=== PATIENT | female | born 1935 | race Caucasian/White ===

== ENCOUNTER 2020-11-19 15:24 | Outpatient (REF) | payer MEDICARE, SELFPAY ==
--- NOTE | ~2020-11-19 | US_ITS ---
EXAMINATION: US VENOUS ULTRASOUND WITH DOPPLER LOWER EXTREMITY, RIGHT CLINICAL INFORMATION: Pain COMPARISON: None TECHNIQUE: Ultrasound of the deep veins is performed from the hip to the calf with compression sonography and color and pulse Doppler assessment. Spectral analysis with color-flow imaging is performed. FINDINGS: There is normal venous compression and respiratory variation and augmented flow. The visualized common femoral vein, superficial femoral vein, profunda femoral vein, popliteal vein, and the trifurcation region shows no evidence of deep venous thrombosis. There is no significant popliteal fossa cyst. US/US venous duplex LE RT IMPRESSION: No DVT demonstrated in the right lower extremity.
== END 2020-11-19 15:25 | disposition home or self-care (01) ==
LOC: HO.US 15:24
PROVIDERS: PCP Internal Medicine; Visit Provider Nurse Practitioner Family
DX: M79.604 Pain in right leg (principal); M79.89 Other specified soft tissue disorders
CPT/HCPCS: 93971

== ENCOUNTER 2021-04-23 08:18 | Outpatient (REF) | payer MEDICARE, SELFPAY ==
[2021-04-23 11:28] LABS: Hematocrit 36.9 % (37-47); Hemoglobin 12.2 g/dl (12.0-16.0); Mean Corpuscular HGB Conc 33.1 g/dl (31.0-35.0); Mean Corpuscular Volume 87.6 fL (80-98); Mean Platelet Volume 9.6 fL (9.4-12.3); Platelet Count 223 X10*3/uL (160-400); Red Blood Count 4.21 X10*6/uL (4.20-5.50); Red Cell Distribution Width 14.3 % (11.0-16.0); White Blood Count 7.2 X10*3/uL (4.8-10.8)
[2021-04-23 12:35] LABS: Alanine Aminotransferase 16 U/L (0-31); Albumin Level 4.1 g/dL (3.5-5.0); Alkaline Phosphatase 73 U/L (39-117); Anion Gap 13 (12-20); Aspartate Amino Transferase 28 U/L (5-31); Bilirubin Total 0.6 mg/dL (0.0-1.0); Blood Urea Nitrogen 30 mg/dL (9-16); Calcium 9.5 mg/dL (8.4-10.2); Carbon Dioxide 27 mmol/L (22-29); Chloride 102 mmol/L (96-108); Cholesterol 178 mg/dL; Estimated Glomerular Filt Rate 50; Glucose Fasting 91 mg/dL (60-99); HDL Cholesterol 66 mg/dL; LDL Cholesterol Calculated 87 mg/dl; Potassium 3.9 mmol/L (3.3-5.1); Sodium 138 mmol/L (135-145); Total Protein 7.2 g/dL (6.5-8.0); Triglycerides 129 mg/dL
[2021-04-23 13:14] LABS: TSH reflex Free T4 2.71 uIU/mL (0.32-4.0)
== END 2021-04-23 08:19 | disposition home or self-care (01) ==
LOC: HO.HMGCLDS 08:18
PROVIDERS: PCP Internal Medicine; Visit Provider Internal Medicine
DX: E03.9 Hypothyroidism, unspecified (principal); E78.5 Hyperlipidemia, unspecified; I12.9 Hypertensive chronic kidney disease with stage 1 through stage 4 chronic kidney disease, or unspecified chronic kidney disease; N18.30 Chronic kidney disease, stage 3 unspecified
CPT/HCPCS: 36415; 80048; 80053; 80061; 84443; 85027

== ENCOUNTER 2021-12-15 08:25 | Outpatient (REF) | payer MEDICARE, SELFPAY ==
[2021-12-15 11:59] LABS: Alanine Aminotransferase 12 U/L (0-31); Albumin Level 4.1 g/dL (3.5-5.0); Alkaline Phosphatase 92 U/L (39-117); Anion Gap 12 (12-20); Aspartate Amino Transferase 24 U/L (5-31); Bilirubin Total 0.2 mg/dL (0.0-1.0); Blood Urea Nitrogen 30 mg/dL (9-16); Calcium 9.7 mg/dL (8.4-10.2); Carbon Dioxide 26 mmol/L (22-29); Chloride 105 mmol/L (96-108); Cholesterol 172 mg/dL; Estimated Glomerular Filt Rate 54; Glucose Fasting 95 mg/dL (60-99); HDL Cholesterol 67 mg/dL; LDL Cholesterol Calculated 83 mg/dl; Potassium 4.4 mmol/L (3.3-5.1); Sodium 139 mmol/L (135-145); Total Protein 7.4 g/dL (6.5-8.0); Triglycerides 113 mg/dL
[2021-12-15 12:02] LABS: TSH reflex Free T4 3.97 uIU/mL (0.32-4.0)
== END 2021-12-15 08:26 | disposition home or self-care (01) ==
LOC: HO.HMGCLDS 08:25
PROVIDERS: Visit Provider Internal Medicine
DX: E78.5 Hyperlipidemia, unspecified (principal); I12.9 Hypertensive chronic kidney disease with stage 1 through stage 4 chronic kidney disease, or unspecified chronic kidney disease; N18.30 Chronic kidney disease, stage 3 unspecified
CPT/HCPCS: 36415; 80053; 80061; 84443

== ENCOUNTER 2022-06-08 09:15 | Outpatient (REF) | payer MEDICARE, SELFPAY ==
[2022-06-08 11:31] LABS: MANUAL DIFF FLAG NO
[2022-06-08 11:56] LABS: Basophils Absolute Auto 0.1 X10*3/uL (0.0-0.2); Basophils Percent Auto 0.9 % (0-2); Eosinophils Absolute Auto 0.1 X10*3/uL (0.0-0.4); Eosinophils Percent Auto 1.9 % (0-4); Hematocrit 38.7 % (37.0-47.0); Hemoglobin 12.8 g/dl (12.0-16.0); Imm Gran Abs Auto 0.01 X10*3/uL (0.00-0.03); Imm Gran Pct Auto 0.2 % (0.0-0.4); Lymphocytes Absolute Auto 1.8 X10*3/uL (1.2-4.9); Lymphocytes Percent Auto 31.2 % (20-40); Mean Corpuscular HGB Conc 33.1 g/dl (31.0-35.0); Mean Corpuscular Hemoglobin 28.9 pg (27.0-33.0); Mean Corpuscular Volume 87.4 fL (80.0-98.0); Mean Platelet Volume 9.7 fL (9.4-12.3); Monocytes Absolute Auto 0.5 X10*3/uL (0.1-1.2); Monocytes Percent Auto 8.5 % (2-11); Neutrophils Absolute Auto 3.4 x10*3/uL (2.0-8.3); Neutrophils Percent Auto 57.3 % (45-73); Platelet Count 231 X10*3/uL (160-400); Red Blood Count 4.43 X10*6/uL (4.20-5.50); White Blood Count 5.9 X10*3/uL (4.8-10.8)
[2022-06-08 12:08] LABS: Alanine Aminotransferase 14 U/L (0-31); Albumin Level 4.3 g/dL (3.5-5.0); Alkaline Phosphatase 91 U/L (39-117); Anion Gap 13 (12-20); Aspartate Amino Transferase 25 U/L (5-31); Bilirubin Total 0.5 mg/dL (0.0-1.0); Blood Urea Nitrogen 29 mg/dL (9-16); Calcium 9.6 mg/dL (8.4-10.2); Carbon Dioxide 28 mmol/L (22-29); Chloride 101 mmol/L (96-108); Cholesterol 208 mg/dL; Estimated Glomerular Filt Rate 46; Glucose Fasting 93 mg/dL (60-99); HDL Cholesterol 69 mg/dL; LDL Cholesterol Calculated 104 mg/dl; Potassium 3.9 mmol/L (3.3-5.1); Sodium 138 mmol/L (135-145); Total Protein 7.7 g/dL (6.5-8.0); Triglycerides 177 mg/dL
[2022-06-08 12:29] LABS: Erythrocyte Sedimentation Rate 9 MM/HR (0-20)
[2022-06-08 12:30] LABS: TSH reflex Free T4 3.43 uIU/mL (0.32-4.0)
== END 2022-06-08 09:16 | disposition home or self-care (01) ==
LOC: HO.HMGCLDS 09:15
PROVIDERS: PCP Internal Medicine; Visit Provider Internal Medicine
DX: Z00.00 Encounter for general adult medical examination without abnormal findings (principal); E78.5 Hyperlipidemia, unspecified; I12.9 Hypertensive chronic kidney disease with stage 1 through stage 4 chronic kidney disease, or unspecified chronic kidney disease; N18.30 Chronic kidney disease, stage 3 unspecified
CPT/HCPCS: 36415; 80053; 80061; 84443; 85025; 85652

== ENCOUNTER 2022-11-12 11:02 | Outpatient (REF) | payer MEDICARE, SELFPAY ==
--- NOTE | ~2022-11-12 | XR_ITS ---
EXAMINATION: XR LUMBOSACRAL SPINE CLINICAL INFORMATION: M54.5 - Low back pain COMPARISON: None available. TECHNIQUE: Three views of the lumbosacral spine. FINDINGS: There is a gentle dextrocurvature lumbar spine. The lateral view suggests normal lumbar segmentation with 5 nonrib-bearing lumbar vertebrae of normal height and lumbar lordosis. No vertebral compression or destructive process. There are multilevel degenerative disc changes at all levels with variable disc narrowing and endplate sclerosis and vertebral spurring. There are bulky partially bridging osteophytes on the left upper to mid lumbar region and anterior lumbosacral junction. There is also facet degeneration lumbosacral junction. A grade 1 spondylolisthesis is present at L5-S1. The SI joints and visualized sacrum are otherwise unremarkable. XR/XR lumbar spine 2-3V IMPRESSION: -Diffuse multilevel degenerative disc changes. -Grade 1 spondylolisthesis lumbosacral junction.
--- NOTE | ~2022-11-12 | XR_ITS ---
EXAMINATION: XR HIPS, BILATERAL CLINICAL INFORMATION: Low back pain COMPARISON: Lumbar spine radiographs 11/12/2022. TECHNIQUE: Each hip is imaged in AP and frog-lateral projections. There are a total of 4 views, 2 on each side. FINDINGS: No fracture, dislocation, destructive process. There is no hip joint narrowing or erosive change or chondrocalcinosis. The the SI joints show mild spurring inferior aspect. No ankylosis. There is mild osteitis pubis. XR/XR hips AMRIT min 3V IMPRESSION: -No hip joint narrowing or erosive change. -Mild osteitis pubis.
== END 2022-11-12 11:03 | disposition home or self-care (01) ==
LOC: HO.HMGCX 11:02
PROVIDERS: PCP Internal Medicine; Visit Provider Internal Medicine
DX: M54.50 Low back pain, unspecified (principal); M70.62 Trochanteric bursitis, left hip; I10 Essential (primary) hypertension
CPT/HCPCS: 72100; 73522

== ENCOUNTER 2022-12-11 09:28 | Outpatient (REF) | payer MEDICARE, SELFPAY ==
[2022-12-11 12:20] LABS: Alanine Aminotransferase 13 U/L (0-31); Albumin Level 4.1 g/dL (3.5-5.0); Alkaline Phosphatase 101 U/L (39-117); Anion Gap 11 (12-20); Aspartate Amino Transferase 25 U/L (5-31); Bilirubin Total 0.5 mg/dL (0.0-1.0); Blood Urea Nitrogen 31 mg/dL (9-16); Calcium 9.7 mg/dL (8.4-10.2); Carbon Dioxide 29 mmol/L (22-29); Chloride 101 mmol/L (96-108); Cholesterol 296 mg/dL; Estimated Glomerular Filt Rate 53; Glucose Fasting 91 mg/dL (60-99); HDL Cholesterol 66 mg/dL; LDL Cholesterol Calculated 184 mg/dl; Potassium 4.2 mmol/L (3.3-5.1); Sodium 137 mmol/L (135-145); TSH reflex Free T4 2.31 uIU/mL (0.32-4.0); Total Protein 7.3 g/dL (6.5-8.0); Triglycerides 233 mg/dL; Vitamin D 25-OH Total 31.5 ng/mL (>30)
== END 2022-12-11 09:29 | disposition home or self-care (01) ==
LOC: HO.HMGCLDS 09:28
PROVIDERS: PCP Internal Medicine; Visit Provider Internal Medicine
DX: E03.9 Hypothyroidism, unspecified (principal); I12.9 Hypertensive chronic kidney disease with stage 1 through stage 4 chronic kidney disease, or unspecified chronic kidney disease; N18.30 Chronic kidney disease, stage 3 unspecified
CPT/HCPCS: 36415; 80053; 80061; 82306; 84443

== ENCOUNTER 2023-05-25 07:28 | Outpatient (REF) | payer MEDICARE, SELFPAY ==
[2023-05-25 11:41] LABS: MANUAL DIFF FLAG NO
[2023-05-25 11:52] LABS: Basophils Percent Auto 0.6 % (0-2); Eosinophils Absolute Auto 0.1 X10*3/uL (0.0-0.4); Hematocrit 35.7 % (37.0-47.0); Hemoglobin 11.7 g/dl (12.0-16.0); Imm Gran Abs Auto 0.05 X10*3/uL (0.00-0.03); Imm Gran Pct Auto 0.7 % (0.0-0.4); Lymphocytes Absolute Auto 1.8 X10*3/uL (1.2-4.9); Lymphocytes Percent Auto 25.1 % (20-40); Mean Corpuscular HGB Conc 32.8 g/dl (31.0-35.0); Mean Corpuscular Hemoglobin 28.4 pg (27.0-33.0); Mean Corpuscular Volume 86.7 fL (80.0-98.0); Mean Platelet Volume 9.1 fL (9.4-12.3); Monocytes Absolute Auto 0.6 X10*3/uL (0.1-1.2); Monocytes Percent Auto 8.6 % (2-11); Neutrophils Absolute Auto 4.6 x10*3/uL (2.0-8.3); Platelet Count 270 X10*3/uL (160-400); Red Blood Count 4.12 X10*6/uL (4.20-5.50); Red Cell Distribution Width 14.9 % (11.0-16.0); White Blood Count 7.2 X10*3/uL (4.8-10.8)
[2023-05-25 12:37] LABS: Alanine Aminotransferase 23 U/L (0-31); Albumin Level 3.8 g/dL (3.5-5.0); Alkaline Phosphatase 73 U/L (39-117); Anion Gap 15 (12-20); Aspartate Amino Transferase 30 U/L (5-31); Bilirubin Total 0.8 mg/dL (0.0-1.0); Blood Urea Nitrogen 27 mg/dL (9-16); Calcium 9.3 mg/dL (8.4-10.2); Carbon Dioxide 24 mmol/L (22-29); Chloride 102 mmol/L (96-108); Cholesterol 132 mg/dL (<200); Estimated Glomerular Filt Rate > 60; Glucose Fasting 92 mg/dL (60-99); HDL Cholesterol 70 mg/dL (>40); LDL Cholesterol Calculated 48 mg/dL (<100); Potassium 3.9 mmol/L (3.3-5.1); Sodium 137 mmol/L (135-145); Total Protein 7.1 g/dL (6.5-8.0); Triglycerides 71 mg/dL (<150)
[2023-05-25 12:38] LABS: TSH reflex Free T4 6.32 uIU/mL (0.32-4.0)
[2023-05-25 13:11] LABS: Free T4 (Free Thyroxine) 1.06 ng/dL (0.71-1.85)
== END 2023-05-25 07:29 | disposition home or self-care (01) ==
LOC: HO.HMGCLDS 07:28
PROVIDERS: PCP Internal Medicine; Visit Provider Internal Medicine
DX: I12.9 Hypertensive chronic kidney disease with stage 1 through stage 4 chronic kidney disease, or unspecified chronic kidney disease (principal); N18.30 Chronic kidney disease, stage 3 unspecified; E03.9 Hypothyroidism, unspecified
CPT/HCPCS: 36415; 80053; 80061; 84439; 84443; 85025

== ENCOUNTER 2023-06-02 08:43 | Outpatient (AMB) | payer MEDICARE, SELFPAY ==
--- NOTE | 2023-06-02 09:19 | MHC.PC.OV ---
Vital Signs 06/02/23 09:22 Height 5 ft Weight 159 lb BMI 31.0 BP 128/74 Blood Pressure Location Lt brachial Position Sitting Pulse 69 Pulse Source Pulse Oximeter Pulse Oximetry (%) 99 Oxygen Delivery Method Room Air [facility]: Pt is here today for a Hospital follow up visit. Allergies penicillin V Allergy (Unknown, Verified 06/02/23 09:28) rash and swelling hydrochlorothiazide Adverse Reaction (Intermediate, Verified 06/02/23 09:40) hyponatremia rosuvastatin [From Crestor] Adverse Reaction (Intermediate, Verified 06/02/23 09:28) Muscle Pain lisinopril Adverse Reaction (Unknown, Verified 06/02/23 09:28) cough Medication List - Last Reconciled 06/02/23 by Ana Laura Lora MD calcium carbonate-vitamin D3 1,000 mg-20 mcg (800 unit) tabs PO clobetasol 0.05% 1 appl topical BID diclofenac sodium 1% (Voltaren) 2 grams topical QID PRN ezetimibe (Zetia) 10 mg PO DAILY levothyroxine 25 mcg PO DAILY metoprolol tartrate 50 mg PO DAILY olmesartan 40 mg PO DAILY Shower Chair As directed triamcinolone acetonide 0.1% 1 appl topical BID walker with wheels Tobacco use date assessed: 06/02/23 Fall risk assessment: 1 Fall in past year Last assessed Fall Risk: 06/02/23 Dental Screening Dental Screen Date: 06/02/23 Did you have a dental visit in the last 12 months?: No Did you have a dental problem in the last 6 months where you did not have access to dental care?: No Was dental information given to patient?: [facility] Patient presents for the follow-up of hospitalization at [facility] for COVID and hyponatremia. Patient is feeling better denies cough shortness of breath. Hydrochlorothiazide was discontinued because of hyponatremia. Hypertension is controlled on current medications [facility] Medical History Annual physical exam Right knee pain Lumbar spine pain Hypothyroidism Chronic kidney disease, stage 3 Tremor PSVT (paroxysmal supraventricular tachycardia) Right-sided carotid artery disease Osteoporosis Hyperlipidemia HTN (hypertension) Surgical History H/O colonoscopy No pertinent past surgical history Family History Father No problems noted. Mother No problems noted. Social History Housing: House Alcohol intake: never Patient Tobacco Use Status: Never used Tobacco e-Cigarette/Vaping Use: Never Used Current occupational status: retired Cognitive needs: No Hearing needs: No Vision needs: Yes Questionnaire Thrive Questionnaire Date Thrive assessed: 11/12/22 MARY ALICE-7 AMB Questionnaire MARY ALICE-7 Date MARY ALICE - 7 assessed: 11/12/22 Source: Developed by Drs. Uriel Burch, Nica Bocanegra, Wood Amezquita and colleagues, with an educational simone from [employer]. Review of Systems Const All systems reviewed & are unremarkable except as noted in HPI and below Reports no additional complaints Eyes Reports no additional complaints ENT Reports no additional complaints Card Reports no additional complaints Resp Reports no additional complaints GI Reports no additional complaints Reports no additional complaints Physical exam (Primary Care) Vital Signs: Last Vital Signs Pulse 69 06/02/23 09:22 BP 128/74 06/02/23 09:22 Pulse Ox 99 06/02/23 09:22 Oxygen Delivery Method Room Air 06/02/23 09:22 BMI result Body Mass Index 31.0 Tobacco/Smoking Status: Tobacco use Status Tobacco use date assessed 06/02/23 06/02/23 09:29 Patient Tobacco Use Status Never used Tobacco 06/02/23 09:29 e-Cigarette/Vaping Use Never Used 06/02/23 09:19 Thrive Assessment: Date of Thrive Assessment Date Thrive assessed 11/12/22 06/02/23 09:19 Const General: no acute distress HENMT Head: Yes normal to inspection General nose exam: Normal external nose present Mouth: Normal oral and palatal mucosa present Neck Neck: Yes supple Resp Effort & Inspection: normal respiratory effort Auscultation: clear to auscultation bilaterally Cardio Rhythm: regular rhythm Heart sounds: S1 normal heart sound present and S2 normal heart sound present GI Inspection: Yes normal to inspection Palpation (GI): Soft to palpation Percussion: Yes normal to percussion Assessment and Plan Assessment & Plan (1) Hypothyroidism: Code(s): E03.9 - Hypothyroidism, unspecified Plan: Continue levothyroxine (2) Chronic kidney disease, stage 3: Code(s): N18.30 - Chronic kidney disease, stage 3 unspecified Plan: Avoid NSAIDs and monitor renal function (3) HTN (hypertension): Code(s): I10 - Essential (primary) hypertension Plan: Continue current medications follow-up in 6 months with a fasting labs before (4) Hyperlipidemia: Comment: Intolerant to statins myalgia Code(s): E78.5 - Hyperlipidemia, unspecified Plan: Continue current medications Coding Level of Care Code Est Pt Level 4 (99758) Diagnoses Hypothyroidism E03.9 Chronic kidney disease, stage 3 N18.30 HTN (hypertension) I10 Hyperlipidemia E78.5
[2023-06-02 09:22] VITALS: BP 128/74; PULSE 69; O2SAT 99; BMI 31.0
== END 2023-06-02 11:54 | disposition home or self-care (01) ==
PROVIDERS: PCP Internal Medicine; Visit Provider Internal Medicine
DX: E03.9 Hypothyroidism, unspecified (principal); I12.9 Hypertensive chronic kidney disease with stage 1 through stage 4 chronic kidney disease, or unspecified chronic kidney disease; N18.30 Chronic kidney disease, stage 3 unspecified; E78.5 Hyperlipidemia, unspecified
CPT/HCPCS: 99214

== ENCOUNTER 2023-08-10 07:33 | Outpatient (REF) | payer MEDICARE, SELFPAY ==
[2023-08-10 12:13] LABS: Cholesterol 188 mg/dL (<200); HDL Cholesterol 74 mg/dL (>40); LDL Cholesterol Calculated 87 mg/dL (<100); Triglycerides 139 mg/dL (<150)
== END 2023-08-10 07:34 | disposition home or self-care (01) ==
LOC: HO.HMGCLDS 07:33
PROVIDERS: PCP Internal Medicine; Visit Provider Internal Medicine
DX: E78.5 Hyperlipidemia, unspecified (principal)
CPT/HCPCS: 36415; 80061

== ENCOUNTER 2023-08-26 11:24 | Outpatient (AMB) | payer MEDICARE, SELFPAY ==
[2023-08-26 11:40] VITALS: BP 135/78; PULSE 75; O2SAT 96; BMI 30.9
--- NOTE | 2023-08-26 11:40 | MHC.PC.OV ---
Vital Signs 08/26/23 11:40 Height 5 ft Weight 158 lb BMI 30.9 Pulse 75 Pulse Source Pulse Oximeter Pulse Oximetry (%) 96 Oxygen Delivery Method Room Air Intake Visit Reasons: SWV G0439/HTN Intake Note: Pt is here today for a AWV.Pt states that she needs a referral for PT. Allergies penicillin V Allergy (Unknown, Verified 08/26/23 11:45) rash and swelling hydrochlorothiazide Adverse Reaction (Intermediate, Verified 08/26/23 11:45) hyponatremia rosuvastatin [From Crestor] Adverse Reaction (Intermediate, Verified 08/26/23 11:45) Muscle Pain lisinopril Adverse Reaction (Unknown, Verified 08/26/23 11:45) cough Tobacco use date assessed: 06/02/23 [facility] Medical History Annual physical exam Right knee pain Lumbar spine pain Hypothyroidism Chronic kidney disease, stage 3 Tremor PSVT (paroxysmal supraventricular tachycardia) Right-sided carotid artery disease Osteoporosis Hyperlipidemia HTN (hypertension) Surgical History H/O colonoscopy No pertinent past surgical history Family History Father No problems noted. Mother No problems noted. Social History Housing: House Alcohol intake: never Patient Tobacco Use Status: Never used Tobacco e-Cigarette/Vaping Use: Never Used Current occupational status: retired Cognitive needs: No Hearing needs: No Vision needs: Yes Questionnaire Thrive Questionnaire Date Thrive assessed: 11/12/22 MARY ALICE-7 AMB Questionnaire MARY ALICE-7 Date MARY ALICE - 7 assessed: 11/12/22 Source: Developed by Drs. Uriel Burch, Nica Bocanegra, Wood Amezquita and colleagues, with an educational simone from [employer]. Physical exam (Primary Care) Tobacco/Smoking Status: Tobacco use Status Tobacco use date assessed 06/02/23 06/02/23 09:29 Patient Tobacco Use Status Never used Tobacco 06/02/23 09:29 e-Cigarette/Vaping Use Never Used 06/02/23 09:19 Thrive Assessment: Date of Thrive Assessment Date Thrive assessed 11/12/22 06/02/23 09:19 Coding
--- NOTE | 2023-08-26 11:49 | AM.OFFVISMDC ---
Intake Vital Signs 08/26/23 11:40 08/26/23 11:50 Height 5 ft Weight 158 lb BMI 30.9 30.9 BP 135/78 Blood Pressure Location Lt brachial Position Sitting Pulse 75 Pulse Source Pulse Oximeter Pulse Oximetry (%) 96 Oxygen Delivery Method Room Air Intake Visit Reasons: SWV G0439/HTN Allergies penicillin V Allergy (Unknown, Verified 08/26/23 11:45) rash and swelling hydrochlorothiazide Adverse Reaction (Intermediate, Verified 08/26/23 11:45) hyponatremia rosuvastatin [From Crestor] Adverse Reaction (Intermediate, Verified 08/26/23 11:45) Muscle Pain lisinopril Adverse Reaction (Unknown, Verified 08/26/23 11:45) cough Medication List - Last Reconciled 08/26/23 by Ana Laura Lora MD calcium carbonate-vitamin D3 1,000 mg-20 mcg (800 unit) tabs PO clobetasol 0.05% 1 appl topical BID diclofenac sodium 1% (Voltaren) 2 grams topical QID PRN levothyroxine 25 mcg PO DAILY metoprolol tartrate 50 mg PO DAILY olmesartan 40 mg PO DAILY rosuvastatin 5 mg PO DAILY Shower Chair As directed triamcinolone acetonide 0.1% 1 appl topical BID walker with wheels HPI SWV G0439/HTN HPI Details Pt presents for annual.Initiated the conversation about Advanced Directives. Advanced Directives help? patients prepare for current and future decisions about their medical treatment? and place of care. Discussed with patient that it is a process where a patients? current condition and prognosis are reviewed, their wishes for information? regarding their illness are elicited, and likely medical dilemmas are presented? and options discussed. The form can be amended as needed, reviewed yearly and? make changes as needed IPPE/AWV ? year old presents? for her ? Annual? Wellness Visit, initial visit.? Medical / Social History Reviewed? Past Medical History ?Yes? . ? [place]? of Care / Care Team list updated ?Yes . ? Surgical/Hospitalization? History ?Yes . ? Current Medications? (including OTC and supplements) ?Yes . ? Family History ?Yes? . ? Tobacco? Control form ?Yes . ? AUDIT-C (Alcohol use) form? ?Yes . ? Illicit drug use in Social? History ?Yes . ? Current diagnosis of? depression? ?No ? Appropriate PHQ2/PHQ9? completed ?Yes . ? Data entered by ?Medical? Household Appliances Service Technician and reviewed by provider ? Fall Risk ? Fall? History? Have you had any falls with? injury in the past year? ?No . ? Have you had two or more? falls in the past year? ?No . ? Fall Risk Assessment: ?No? falls in the past year . ? HRA filled out by? the patient, reviewed by Provider and scanned. ? IPPE/AWV ? Balance? [place]? ?Yes . ? Tandem? walk ?Yes . ? Walk and? Turn ?Yes . ? Rise from? sit to stand ?Yes . ?Vision? Corrective? lens ?Yes ? Vision? screen ? Up-to-date, has an appointment [] for vision? screening and glaucoma screening ?Hearing? Whisper? test ?pass .? Initiated the conversation about Advanced Directives. Advanced Directives help? patients prepare for current and future decisions about their medical treatment? and place of care. Discussed with patient that it is a process where a patients? current condition and prognosis are reviewed, their wishes for information? regarding their illness are elicited, and likely medical dilemmas are presented? and options discussed. The form can be amended as needed, reviewed yearly and? make changes as needed Written? Plan?Completed. See Patient? Documents. [facility] Medical History Annual physical exam Right knee pain Lumbar spine pain Hypothyroidism Chronic kidney disease, stage 3 Tremor PSVT (paroxysmal supraventricular tachycardia) Right-sided carotid artery disease Osteoporosis Hyperlipidemia HTN (hypertension) Surgical History H/O colonoscopy No pertinent past surgical history Family History Father No problems noted. Mother No problems noted. Social History Housing: House Alcohol intake: never Patient Tobacco Use Status: Never used Tobacco e-Cigarette/Vaping Use: Never Used Current occupational status: retired Cognitive needs: No Hearing needs: No Vision needs: Yes Questionnaire Medicare Wellness Checkup What is your age?: 82 or older What gender do you identify with?: female During the past 4 weeks, how much have you been bothered by emotional problems such as feeling anxious, depressed, irritable, sad or downhearted, and blue?: not at all During the past 4 weeks, has your physical & emotional health limited your social activities with family, friends, neighbors, or groups?: not at all During the past 4 weeks, how much bodily pain have you generally had?: mild pain During the past 4 weeks, was someone available to help you if you needed & wanted help?: yes, as much as I wanted During the past 4 weeks, what was the hardest physical activity you could do for at least 2 minutes?: light Can you get to places out of walking distance without help? (For eg., can you travel alone on buses, taxis or drive your car?): No Can you go shopping for groceries or clothes without someone's help?: No Can you prepare your own meals?: Yes Can you do your housework without help?: Yes Because of any health problems, do you need the help of another person with your personal care needs such as eating, bathing, dressing or getting around the house?: No Can you handle your own money without help?: Yes During the past 4 weeks, how would you rate your health in general?: good During the past 4 weeks how have things been going for you?: good & bad parts about equal Are you having difficulties driving your car?: not applicable, I don't use a car Do you always fasten your seat belt when you are in a car?: yes, usually During past 4 weeks, have you been bothered by the following: never: Falling or dizzy when standing up, Sexual problems?, Trouble eating well?, Teeth or denture problems? and Problems using the telephone? and seldom: Tiredness or fatigue? Have you fallen 2 or more times in the past year?: Yes Are you afraid of falling?: No Are you a smoker?: no During the past 4 weeks, how many drinks of wine, beer, or other alcoholic beverages did you have?: no alcohol at all Do you exercise for about 20 minutes 3 or more times a week?: no, I usually do not exercise this much Have you been given information to help with the following?: no: Hazards in your house that might hurt you? and no: Keeping track of your medications? How often do you have trouble taking medicines the way you have been told to take them?: I always take medicine as prescribed How confident are you that you can control & manage most of your health problems?: very confident What is your race?: White Mini Mental State Exam (MMSE) Orientation What is the (year) (season) (date) (day) (month)?: year, season, date, day and month Where are we (state) (county) (town or city) (hospital) (floor)?: state, county, town or city, hospital/clinic and floor Registration Name of 3 unrelated objects clearly and slowly, then ask patient to repeat all 3 of them. (1st repeat determines score. Make sure they can repeat all three): object 1, object 2 and object 3 Attention & Calculation (CHOOSE ONE) Spell WORLD backwards (DLROW): 5 letters Recall Ask patient to repeat the 3 items from question #3.: object 1, object 2 and object 3 Language Show patient a wristwatch & ask what it is. Repeat for pencil.: watch and pencil Ask the patient to repeat the phrase 'No ifs, ands, or buts' after you.: correct Ask the patient to 'take a piece of paper with their right hand' 'fold paper in half' 'place paper on floor': take paper in right hand, fold paper in half and place paper on floor Print the sentence 'CLOSE YOUR EYES' on a piece. If patient actually closes eyes then score.: followed written direction Give patient a blank piece of paper & ask to write a sentence. Score if it contains a noun & verb.: sentence contains subject and verb Score Score: 29 Activity of Daily Living Bathing - sponge bath, tub bath or shower: receives no assistance (gets in/out by self, if usual bathing means Dressing - getting clothes from closets & drawers, including inner/outer garments & fasteners.: gets clothes & gets completely dressed without help Toileting - going to the 'toilet room' for urine/bowel elimination & cleaning self/arranging clothes: goes to toilet room, cleans self, arranges clothes without help Transfer: moves in & out of bed and chair without help (may use support object) Continence: controls urination/bowel movements completely by self Feeding: feeds self without help Total Score: 0 Information obtained from: patient Using telephone: independent Traveling: dependent Shopping: dependent Preparing meals: independent Housework: independent Taking medicine: independent Managing money: independent PHQ-9 Over the last 2 weeks, how often have you been bothered by any of the following problems? 1. Little interest or pleasure in doing things: not at all 2. Feeling down, depressed, or hopeless: not at all 3. Trouble falling or staying asleep, or sleeping too much: not at all 4. Feeling tired or having little energy: not at all 5. Poor appetite or overeating: not at all 6. Feeling bad about yourself - or that you are a failure or have let yourself or your family down: not at all 7. Trouble concentrating on things, such as reading the newspaper or watching television: not at all 8. Moving or speaking so slowly that other people could have noticed. Or the opposite - being so fidgety or restless that you have been moving around a lot more than usual: not at all 9. Thoughts that you would be better off or of hurting yourself in some way: not at all Total score: 0 Depression Screening Interpretation: Negative Depression Screening Done: Yes Source: Developed by Drs. Uriel Burch, Nica Bocanegra, Wood Amezquita and colleagues, with an educational simone from [employer]. Review of Systems Const All systems reviewed & are unremarkable except as noted in HPI and below Reports no additional complaints Eyes Reports no additional complaints ENT Reports no additional complaints Card Reports no additional complaints Resp Reports no additional complaints GI Reports no additional complaints Reports no additional complaints Musc Reports no additional complaints Physical Exam Vital Signs: Last Vital Signs Pulse 75 08/26/23 11:40 BP 146/78 H 08/26/23 11:40 Pulse Ox 96 08/26/23 11:40 Oxygen Delivery Method Room Air 08/26/23 11:40 BMI result Body Mass Index 30.9 Const General: no acute distress HEENT Head: Yes normal to inspection Ears: hearing grossly normal bilaterally Eyes General: appearance normal, both eyes and all related structures Neck Neck: Yes no lymphadenopathy and Yes supple Resp Effort & Inspection: normal respiratory effort Auscultation: clear to auscultation bilaterally Cardio Rhythm: regular rhythm Heart sounds: S1 normal heart sound present and S2 normal heart sound present GI Inspection: Yes normal to inspection Palpation (GI): Soft to palpation Percussion: Yes normal to percussion Auscultation: normal bowel sounds Extrem General: Yes no clubbing, cyanosis or edema Assessment & Plan Assessment & Plan (1) Annual physical exam: Code(s): Z00.00 - Encounter for general adult medical examination without abnormal findings Plan: Well-balanced diet regular exercise weight loss discussed with the patient. Return in 4 months (2) Hypothyroidism: Code(s): E03.9 - Hypothyroidism, unspecified Plan: Continue levothyroxine (3) Chronic kidney disease, stage 3: Code(s): N18.30 - Chronic kidney disease, stage 3 unspecified Plan: Avoid NSAIDs and monitor renal function (4) HTN (hypertension): Code(s): I10 - Essential (primary) hypertension Plan: Continue current medications (5) Hyperlipidemia: Code(s): E78.5 - Hyperlipidemia, unspecified Plan: Continue Crestor and low-cholesterol diet Orders: Orders Comprehensive Cyrus. Panel Fast 4 Months E03.9 - Hypothyroidism, unspecified, E78.5 - Hyperlipidemia, unspecified, I10 - Essential (primary) hypertension, N18.30 - Chronic kidney disease, stage 3 unspecified TSH reflex Free T4 4 Months E03.9 - Hypothyroidism, unspecified, E78.5 - Hyperlipidemia, unspecified, I10 - Essential (primary) hypertension, N18.30 - Chronic kidney disease, stage 3 unspecified Complete Blood Count Auto Diff 4 Months E03.9 - Hypothyroidism, unspecified, E78.5 - Hyperlipidemia, unspecified, I10 - Essential (primary) hypertension, N18.30 - Chronic kidney disease, stage 3 unspecified Vitamin D 25-OH Total 4 Months E03.9 - Hypothyroidism, unspecified, E78.5 - Hyperlipidemia, unspecified, I10 - Essential (primary) hypertension, N18.30 - Chronic kidney disease, stage 3 unspecified Quality Reporting (2020) Depression/Bipolar (159/160/161/177) PHQ-9: Total score: 0 Coding Level of Care Code Medicare Subsequent (G0439) Diagnoses Annual physical exam Z00.00 Hypothyroidism E03.9 Chronic kidney disease, stage 3 N18.30 HTN (hypertension) I10 Hyperlipidemia E78.5 CPT Codes Advance Care Planning - Advance Care Planning discussion: On file, no changes ([id number]) Advance Care Planning - Time spent: 1-15 minutes, not on file ([id number]) Advance Care Planning Advance Care Planning discussion: On file, no changes Forms completed: Health Care Proxy Time spent: 1-15 minutes, not on file
[2023-08-26 11:50] VITALS: BMI 30.9
== END 2023-08-26 12:35 | disposition home or self-care (01) ==
PROVIDERS: PCP Internal Medicine; Visit Provider Internal Medicine
DX: Z00.00 Encounter for general adult medical examination without abnormal findings (principal); I12.9 Hypertensive chronic kidney disease with stage 1 through stage 4 chronic kidney disease, or unspecified chronic kidney disease; N18.30 Chronic kidney disease, stage 3 unspecified; E03.9 Hypothyroidism, unspecified; E78.5 Hyperlipidemia, unspecified
CPT/HCPCS: 1124F; G0439

== ENCOUNTER 2023-11-02 13:14 | Outpatient (AMB) | payer MEDICARE, SELFPAY ==
--- NOTE | 2023-11-02 13:38 | MHC.PC.OV ---
Vital Signs 11/02/23 13:54 Height 5 ft Weight 162 lb BMI 31.6 BP 128/80 Blood Pressure Location Rt brachial Position Sitting Pulse 66 Pulse Source Pulse Oximeter Pulse Oximetry (%) 97 Oxygen Delivery Method Room Air Intake Visit Reasons: Lower back pain hair loss Intake Note: Pt is here today for a sick visit. Pt c/o hair loss, pain in her L hip that goes down her leg and also lump behind her L knee. Pt also would like to get a referral to see prescriptionist at [facility] cardiovascular Dr. New. Allergies penicillin V Allergy (Unknown, Verified 11/02/23 13:39) rash and swelling hydrochlorothiazide Adverse Reaction (Intermediate, Verified 11/02/23 13:39) hyponatremia rosuvastatin [From Crestor] Adverse Reaction (Intermediate, Verified 11/02/23 13:39) Muscle Pain lisinopril Adverse Reaction (Unknown, Verified 11/02/23 13:39) cough Tobacco use date assessed: 11/02/23 Fall risk assessment: 1 Fall in past year Last assessed Fall Risk: 11/02/23 Dental Screening Dental Screen Date: 11/02/23 Did you have a dental visit in the last 12 months?: No Did you have a dental problem in the last 6 months where you did not have access to dental care?: No Was dental information given to patient?: Patient declined HPI Lower back pain hair loss HPI Details PATIENT PRESENTS FOR THE FOLLOW-UP OF HYPERTENSION HYPERLIPIDEMIA. Patient complains of chronic left knee pain and stiffness worse in the morning. She noticed swelling behind her left knee 2 months ago. Patient complains of excessive hair loss for the last few months. She has been eating well-balanced diet. [facility] Medical History Annual physical exam Right knee pain Lumbar spine pain Hypothyroidism Chronic kidney disease, stage 3 Tremor PSVT (paroxysmal supraventricular tachycardia) Right-sided carotid artery disease Osteoporosis Hyperlipidemia HTN (hypertension) Surgical History H/O colonoscopy No pertinent past surgical history Family History Father No problems noted. Mother No problems noted. Social History Housing: House Alcohol intake: never Patient Tobacco Use Status: Never used Tobacco e-Cigarette/Vaping Use: Never Used Current occupational status: retired Cognitive needs: No Hearing needs: No Vision needs: Yes Questionnaire Thrive Questionnaire Date Thrive assessed: 11/12/22 AUDIT C Alcohol Use Questionnaire (AUDIT-C) 1. How often do you have a drink containing alcohol?: Never 3. How often do you have six or more drinks on one occasion?: Never Total Score: 0 MARY ALICE-7 AMB Questionnaire MARY ALICE-7 Date MARY ALICE - 7 assessed: 11/12/22 Source: Developed by Drs. Uriel Burch, Nica Bocanegra, Wood Amezquita and colleagues, with an educational simone from [employer]. Review of Systems Const All systems reviewed & are unremarkable except as noted in HPI and below Reports no additional complaints Eyes Reports no additional complaints ENT Reports no additional complaints Card Reports no additional complaints Resp Reports no additional complaints GI Reports no additional complaints Reports no additional complaints Physical exam (Primary Care) Vital Signs: Last Vital Signs Pulse 66 11/02/23 13:54 BP 128/80 11/02/23 13:54 Pulse Ox 97 11/02/23 13:54 Oxygen Delivery Method Room Air 11/02/23 13:54 BMI result Body Mass Index 31.6 Tobacco/Smoking Status: Tobacco use Status Tobacco use date assessed 11/02/23 11/02/23 13:39 Patient Tobacco Use Status Never used Tobacco 11/02/23 13:39 e-Cigarette/Vaping Use Never Used 11/02/23 13:39 Thrive Assessment: Date of Thrive Assessment Date Thrive assessed 11/12/22 11/02/23 13:39 Const General: no acute distress HENMT Head: Yes normal to inspection Ears: hearing grossly normal bilaterally Eyes General: appearance normal, both eyes and all related structures Resp Effort & Inspection: normal respiratory effort Auscultation: clear to auscultation bilaterally Cardio Rhythm: regular rhythm Heart sounds: S1 normal heart sound present and S2 normal heart sound present GI Inspection: Yes normal to inspection Palpation (GI): Soft to palpation Extrem Other: Decreased range of motion and crepitus of the left knee, there is a soft tissue swelling behind the left knee no erythema warmth or tenderness Assessment and Plan Assessment & Plan (1) Underwood's cyst: Code(s): M71.20 - Synovial cyst of popliteal space [Underwood], unspecified knee Plan: Obtain ultrasound to evaluate for Underwood cyst (2) Hypothyroidism: Code(s): E03.9 - Hypothyroidism, unspecified Plan: Continue levothyroxine check TSH today (3) HTN (hypertension): Code(s): I10 - Essential (primary) hypertension Plan: Continue current medications (4) Chronic kidney disease, stage 3: Code(s): N18.30 - Chronic kidney disease, stage 3 unspecified Plan: Avoid nephrotoxins and monitor renal function (5) Hyperlipidemia: Code(s): E78.5 - Hyperlipidemia, unspecified Plan: Continue statin (6) Knee pain, left: Code(s): M25.562 - Pain in left knee Plan: Check x-ray and refer for cortisone injection if needed Orders: Orders US extremity nonvascular Today M71.20 - Synovial cyst of popliteal space [Underwood], unspecified knee TSH reflex Free T4 Today E03.9 - Hypothyroidism, unspecified, E78.5 - Hyperlipidemia, unspecified, I10 - Essential (primary) hypertension, N18.30 - Chronic kidney disease, stage 3 unspecified Comprehensive Met. Panel Today E03.9 - Hypothyroidism, unspecified, E78.5 - Hyperlipidemia, unspecified, I10 - Essential (primary) hypertension, N18.30 - Chronic kidney disease, stage 3 unspecified Complete Blood Count no Diff Today E03.9 - Hypothyroidism, unspecified, E78.5 - Hyperlipidemia, unspecified, I10 - Essential (primary) hypertension, N18.30 - Chronic kidney disease, stage 3 unspecified XR knee LT 2V Today M25.562 - Pain in left knee Coding Level of Care Code Est Pt Level 4 (74693) Diagnoses Underwood's cyst M71.20 Hypothyroidism E03.9 HTN (hypertension) I10 Chronic kidney disease, stage 3 N18.30 Hyperlipidemia E78.5 Knee pain, left M25.562
[2023-11-02 13:54] VITALS: BP 128/80; PULSE 66; O2SAT 97; BMI 31.6
== END 2023-11-02 14:36 | disposition home or self-care (01) ==
PROVIDERS: PCP Internal Medicine; Visit Provider Internal Medicine
DX: I12.9 Hypertensive chronic kidney disease with stage 1 through stage 4 chronic kidney disease, or unspecified chronic kidney disease (principal); N18.30 Chronic kidney disease, stage 3 unspecified; M71.20 Synovial cyst of popliteal space [Baker], unspecified knee; E03.9 Hypothyroidism, unspecified; E78.5 Hyperlipidemia, unspecified; M25.562 Pain in left knee
CPT/HCPCS: 99214

== ENCOUNTER 2023-11-02 14:30 | Outpatient (REF) | payer MEDICARE, SELFPAY ==
--- NOTE | ~2023-11-02 | US_ITS ---
EXAMINATION: US EXTREMITY, NONVASCULAR CLINICAL INFORMATION: Left posterior knee pain COMPARISON: None available. TECHNIQUE: Grayscale and color imaging of the soft tissues behind the knee using a linear and curved transducer FINDINGS: There is a 7.1 x 1.9 x 3.8 cm complex fluid collection behind the knee suggestive of a Underwood's cyst. US/US extremity nonvascular IMPRESSION: 7.1 x 1.9 x 3.8 cm Underwood's cyst.
--- NOTE | ~2023-11-02 | XR_ITS ---
EXAMINATION: XR KNEE, LEFT CLINICAL INFORMATION: Pain in left knee. COMPARISON: None available. TECHNIQUE: 2 views of the left knee. FINDINGS: The bones are diffusely demineralized. Moderate joint effusion. Extensive vascular calcifications. Moderate narrowing of the lateral compartment. Tiny tricompartmental osteophytes. XR/XR knee LT 2V IMPRESSION: Moderate degenerative changes.
[2023-11-02 16:17] LABS: Hematocrit 38.9 % (37.0-47.0); Hemoglobin 12.8 g/dl (12.0-16.0); Mean Corpuscular HGB Conc 32.9 g/dl (31.0-35.0); Mean Corpuscular Hemoglobin 28.4 pg (27.0-33.0); Mean Corpuscular Volume 86.4 fL (80.0-98.0); Mean Platelet Volume 9.2 fL (9.4-12.3); Platelet Count 255 X10*3/uL (160-400); Red Cell Distribution Width 14.8 % (11.0-16.0); White Blood Count 7.8 X10*3/uL (4.8-10.8)
[2023-11-02 16:51] LABS: Alanine Aminotransferase 13 U/L (0-31); Albumin Level 4.2 g/dL (3.5-5.0); Alkaline Phosphatase 103 U/L (39-117); Anion Gap 13 (12-20); Aspartate Amino Transferase 27 U/L (5-31); Bilirubin Total 0.4 mg/dL (0.0-1.0); Blood Urea Nitrogen 24 mg/dL (9-16); Calcium 9.6 mg/dL (8.4-10.2); Carbon Dioxide 27 mmol/L (22-29); Chloride 103 mmol/L (96-108); Estimated Glomerular Filt Rate > 60; Glucose Random 100 mg/dL (60-115); Sodium 139 mmol/L (135-145)
[2023-11-02 16:58] LABS: TSH reflex Free T4 4.71 uIU/mL (0.32-4.0)
[2023-11-02 17:28] LABS: Free T4 (Free Thyroxine) 0.92 ng/dL (0.71-1.85)
== END 2023-11-02 14:31 | disposition home or self-care (01) ==
LOC: HO.HMGCX 14:30
PROVIDERS: PCP Internal Medicine; Visit Provider Internal Medicine
DX: M25.562 Pain in left knee (principal); E03.9 Hypothyroidism, unspecified; I12.9 Hypertensive chronic kidney disease with stage 1 through stage 4 chronic kidney disease, or unspecified chronic kidney disease; N18.30 Chronic kidney disease, stage 3 unspecified; E78.5 Hyperlipidemia, unspecified; M71.20 Synovial cyst of popliteal space [Baker], unspecified knee
CPT/HCPCS: 36415; 73560; 76882; 80053; 84439; 84443; 85027

== ENCOUNTER 2024-03-06 12:13 | Outpatient (AMB) | payer MEDICARE, SELFPAY ==
[2024-03-06 12:24] VITALS: BP 136/68; PULSE 69; O2SAT 96; BMI 30.7
--- NOTE | 2024-03-06 12:24 | MHC.PC.OV ---
Vital Signs 03/06/24 12:24 Height 5 ft Weight 157 lb BMI 30.7 BP 136/68 Blood Pressure Location Lt brachial Position Sitting Pulse 69 Pulse Source Pulse Oximeter Pulse Oximetry (%) 96 Oxygen Delivery Method Room Air Intake Visit Reasons: 4 month follow up HTN Intake Note: Pt is here today for 4 months follow up visit. Allergies penicillin V Allergy (Unknown, Verified 03/06/24 12:31) rash and swelling hydrochlorothiazide Adverse Reaction (Intermediate, Verified 03/06/24 12:31) hyponatremia rosuvastatin [From Crestor] Adverse Reaction (Intermediate, Verified 03/06/24 12:31) Muscle Pain lisinopril Adverse Reaction (Unknown, Verified 03/06/24 12:31) cough Medication List - Last Reconciled 03/06/24 by Ana Laura Lora MD calcium carbonate-vitamin D3 1,000 mg-20 mcg (800 unit) tabs PO carbamide peroxide 6.5% (Debrox) 5 drps otic (ears) DAILY 4 days clobetasol 0.05% 1 appl topical BID diclofenac sodium 1% (Voltaren) 2 grams topical QID PRN levothyroxine 25 mcg PO DAILY metoprolol tartrate 50 mg PO DAILY olmesartan 40 mg PO DAILY rosuvastatin 5 mg PO DAILY Shower Chair As directed triamcinolone acetonide 0.1% 1 appl topical BID walker with wheels Tobacco use date assessed: 03/06/24 Fall risk assessment: No Falls in past year Last assessed Fall Risk: 03/06/24 Dental Screening Dental Screen Date: 03/06/24 Did you have a dental visit in the last 12 months?: Yes Did you have a dental problem in the last 6 months where you did not have access to dental care?: No Was dental information given to patient?: Patient has dentist HPI 4 month follow up HTN HPI Details Pt presents for f/u HTN. hyperlipid, hypothyroid, stable on meds. [facility] Medical History Annual physical exam Right knee pain Lumbar spine pain Hypothyroidism Chronic kidney disease, stage 3 Tremor PSVT (paroxysmal supraventricular tachycardia) Right-sided carotid artery disease Osteoporosis Hyperlipidemia HTN (hypertension) Surgical History H/O colonoscopy No pertinent past surgical history Family History Father No problems noted. Mother No problems noted. Social History Housing: House Alcohol intake: never Patient Tobacco Use Status: Never used Tobacco e-Cigarette/Vaping Use: Never Used service: No Current occupational status: retired Cognitive needs: No Hearing needs: No Vision needs: Yes Questionnaire PHQ-9 Over the last 2 weeks, how often have you been bothered by any of the following problems? 1. Little interest or pleasure in doing things: not at all 2. Feeling down, depressed, or hopeless: not at all 3. Trouble falling or staying asleep, or sleeping too much: not at all 4. Feeling tired or having little energy: not at all 5. Poor appetite or overeating: not at all 6. Feeling bad about yourself - or that you are a failure or have let yourself or your family down: not at all 7. Trouble concentrating on things, such as reading the newspaper or watching television: not at all 8. Moving or speaking so slowly that other people could have noticed. Or the opposite - being so fidgety or restless that you have been moving around a lot more than usual: not at all 9. Thoughts that you would be better off or of hurting yourself in some way: not at all Total score: 0 Depression Screening Interpretation: Negative Depression Screening Done: Yes Source: Developed by Drs. Uriel Burch, Nica Bocanegra, Wood Amezquita and colleagues, with an educational simone from [employer]. Thrive Questionnaire Date Thrive assessed: 03/06/24 I am a: Patient What is your living situation today?: I have a steady place to live Within the past 12 months, did the food you bought not last and you didn't have the money to get more?: Never true Within the past 12 months, did you worry whether your food would run out before you got money to buy more?: Never true Do you have trouble paying for medicines?: No Do you have trouble getting transportation to medical appointments?: No Do you have trouble paying your heating and electricity bill?: No Do you have trouble taking care of your child, family member or friend?: No Do you have trouble with day-to-day activities such as bathing, preparing meals, shopping, managing finances, etc.?: No Are you currently unemployed and looking for a job?: No Are you interested in more education?: No Please select the resources that you would like help with: None THRIVE Score: 0 AUDIT C Alcohol Use Questionnaire (AUDIT-C) 1. How often do you have a drink containing alcohol?: Never 3. How often do you have six or more drinks on one occasion?: Never Total Score: 0 MARY ALICE-7 AMB Questionnaire MARY ALICE-7 Date MARY ALICE - 7 assessed: 03/06/24 Feeling nervous, anxious, or on edge: 0 = Not at all Not being able to stop or control worryin = Not at all Worrying too much about different things: 0 = Not at all Trouble relaxin = Not at all Being so restless that it is hard to sit still: 0 = Not at all Becoming easily annoyed or irritable: 0 = Not at all Feeling afraid as if something awful might happen: 0 = Not at all Total MARY ALICE-7 score (0-4 normal; 5-9 mild; 10-14 moderate; 15-21 severe): 0 Source: Developed by Drs. Uriel Burch, Nica Bocanegra, Wood Amezquita and colleagues, with an educational simone from [employer]. Review of Systems Const All systems reviewed & are unremarkable except as noted in HPI and below Eyes Reports no additional complaints ENT Reports no additional complaints Card Reports no additional complaints Resp Reports no additional complaints GI Reports no additional complaints Physical exam (Primary Care) Vital Signs: Last Vital Signs Pulse 69 03/06/24 12:24 BP 136/68 03/06/24 12:24 Pulse Ox 96 03/06/24 12:24 Oxygen Delivery Method Room Air 03/06/24 12:24 BMI result Body Mass Index 30.7 Tobacco/Smoking Status: Tobacco use Status Tobacco use date assessed 03/06/24 03/06/24 12:33 Patient Tobacco Use Status Never used Tobacco 03/06/24 12:24 e-Cigarette/Vaping Use Never Used 03/06/24 12:24 PHQ-9: PHQ-9 Score PHQ-9: Total score 0 03/06/24 12:33 Depression Screening Interpretation: Negative Thrive Assessment: Date of Thrive Assessment Date Thrive assessed 03/06/24 03/06/24 12:33 Const General: no acute distress HENMT Head: Yes normal to inspection Face and sinus: Yes normal facial exam Throat: Yes posterior oropharynx normal Eyes General: appearance normal, both eyes and all related structures Resp Effort & Inspection: normal respiratory effort Auscultation: clear to auscultation bilaterally Cardio Rhythm: regular rhythm Heart sounds: S1 normal heart sound present and S2 normal heart sound present GI Inspection: Yes normal to inspection Palpation (GI): Soft to palpation Percussion: Yes normal to percussion Auscultation: normal bowel sounds Assessment and Plan Assessment & Plan (1) PSVT (paroxysmal supraventricular tachycardia): Code(s): I47.1 - Supraventricular tachycardia Plan: cont meds (2) Chronic kidney disease, stage 3: Code(s): N18.30 - Chronic kidney disease, stage 3 unspecified Plan: Monitor renal function and avoid nephrotoxins (3) HTN (hypertension): Code(s): I10 - Essential (primary) hypertension Plan: Continue current medications (4) Hyperlipidemia: Code(s): E78.5 - Hyperlipidemia, unspecified Plan: Continue statin (5) Hypothyroidism: Code(s): E03.9 - Hypothyroidism, unspecified Plan: Continue levothyroxine, follow-up in 6 months Orders: Orders TSH reflex Free T4 Today E03.9 - Hypothyroidism, unspecified, I10 - Essential (primary) hypertension, I47.1 - Supraventricular tachycardia, N18.30 - Chronic kidney disease, stage 3 unspecified Comprehensive Met. Panel Today E03.9 - Hypothyroidism, unspecified, I10 - Essential (primary) hypertension, I47.1 - Supraventricular tachycardia, N18.30 - Chronic kidney disease, stage 3 unspecified Complete Blood Count Auto Diff Today E03.9 - Hypothyroidism, unspecified, I10 - Essential (primary) hypertension, I47.1 - Supraventricular tachycardia, N18.30 - Chronic kidney disease, stage 3 unspecified Coding Level of Care Code Est Pt Level 4 (63110) Diagnoses PSVT (paroxysmal supraventricular tachycardia) I47.1 Chronic kidney disease, stage 3 N18.30 HTN (hypertension) I10 Hyperlipidemia E78.5 Hypothyroidism E03.9
== END 2024-03-06 13:03 | disposition home or self-care (01) ==
LOC: HO.HMGC 12:13
PROVIDERS: PCP Internal Medicine; Visit Provider Internal Medicine
DX: I47.10 Supraventricular tachycardia, unspecified (principal); I12.9 Hypertensive chronic kidney disease with stage 1 through stage 4 chronic kidney disease, or unspecified chronic kidney disease; N18.30 Chronic kidney disease, stage 3 unspecified; E78.5 Hyperlipidemia, unspecified; E03.9 Hypothyroidism, unspecified
CPT/HCPCS: 99214

== ENCOUNTER 2024-03-06 13:00 | Outpatient (REF) | payer MEDICARE, SELFPAY ==
[2024-03-06 15:57] LABS: MANUAL DIFF FLAG NO
[2024-03-06 16:15] LABS: Basophils Absolute Auto 0.1 X10*3/uL (0.0-0.2); Basophils Percent Auto 0.9 % (0-2); Eosinophils Absolute Auto 0.2 X10*3/uL (0.0-0.4); Eosinophils Percent Auto 2.7 % (0-4); Hemoglobin 12.3 g/dl (12.0-16.0); Imm Gran Abs Auto 0.02 X10*3/uL (0.00-0.03); Imm Gran Pct Auto 0.3 % (0.0-0.4); Lymphocytes Absolute Auto 2.2 X10*3/uL (1.2-4.9); Lymphocytes Percent Auto 33.7 % (20-40); Mean Corpuscular HGB Conc 32.4 g/dl (31.0-35.0); Mean Corpuscular Hemoglobin 28.9 pg (27.0-33.0); Mean Corpuscular Volume 89.4 fL (80.0-98.0); Mean Platelet Volume 10.2 fL (9.4-12.3); Monocytes Absolute Auto 0.5 X10*3/uL (0.1-1.2); Monocytes Percent Auto 7.6 % (2-11); Neutrophils Absolute Auto 3.6 x10*3/uL (2.0-8.3); Neutrophils Percent Auto 54.8 % (45-73); Platelet Count 212 X10*3/uL (160-400); Red Blood Count 4.25 X10*6/uL (4.20-5.50); White Blood Count 6.6 X10*3/uL (4.8-10.8)
[2024-03-06 16:34] LABS: Alanine Aminotransferase 13 U/L (0-31); Albumin Level 4.2 g/dL (3.5-5.0); Alkaline Phosphatase 97 U/L (39-117); Anion Gap 10 (12-20); Aspartate Amino Transferase 24 U/L (5-31); Bilirubin Total 0.4 mg/dL (0.0-1.0); Blood Urea Nitrogen 23 mg/dL (9-16); Calcium 9.7 mg/dL (8.4-10.2); Carbon Dioxide 27 mmol/L (22-29); Chloride 107 mmol/L (96-108); Estimated Glomerular Filt Rate > 60; Glucose Random 110 mg/dL (60-115); Sodium 140 mmol/L (135-145); Total Protein 7.5 g/dL (6.5-8.0)
[2024-03-06 16:50] LABS: Vitamin D 25-OH Total 43.5 ng/mL (>30)
== END 2024-03-06 13:01 | disposition home or self-care (01) ==
LOC: HO.HMGCLDS 13:00
PROVIDERS: PCP Internal Medicine; Visit Provider Internal Medicine
DX: I12.9 Hypertensive chronic kidney disease with stage 1 through stage 4 chronic kidney disease, or unspecified chronic kidney disease (principal); N18.30 Chronic kidney disease, stage 3 unspecified; E03.9 Hypothyroidism, unspecified; E78.5 Hyperlipidemia, unspecified; I47.10 Supraventricular tachycardia, unspecified
CPT/HCPCS: 36415; 80053; 82306; 84443; 85025

== ENCOUNTER 2024-04-27 09:48 | Outpatient (REF) | payer MEDICARE, SELFPAY ==
--- NOTE | ~2024-04-27 | XR_ITS ---
EXAMINATION: XR LUMBOSACRAL SPINE CLINICAL INFORMATION: LOW BACK PAIN, ARTHRITIS. COMPARISON: 11/12/2022. TECHNIQUE: AP, lateral, coned-down lateral, and both oblique views of the lumbosacral spine. FINDINGS: No acute fracture or focal bony abnormality. Mild diffuse osteopenia. There is a moderate to severe right convex scoliosis, estimated at 33 degrees, apex at L2. There is a rotatory component. There is mild straightening of the normal lordosis. There is a chronic mild inferior endplate compression deformity of L1. There are prominent Schmorl's nodes in the endplates of T12-L3. There is a 2.0 cm grade 2 spondylolisthesis L5-S1, with complete loss of intervening disc space and [id number] appearance. Large associated productive disc osteophyte. Severe multilevel disc degeneration present, most significant at L4-5 and L5-S1. Large productive ventral and bilateral disc osteophytes present. Multilevel degenerative facet change present left greater than right. SI joints demonstrate moderate degenerative changes. Sacrum appears intact. Soft tissues demonstrate mild vascular calcifications but are otherwise normal. XR/XR lumbar spine 4V min IMPRESSION: 1. No acute findings of the lumbar spine. 2. Grade 2 spondylolisthesis L5-S1. 3. Advanced spondylosis of the lumbar spine. Scoliosis. Old inferior endplate compression deformity of L1. 4. Overall no significant interval change from 11/12/2022. Electronically signed by: Jose Metcalf MD 07/07/2024 03:22 PM [facility]
== END 2024-04-27 09:49 | disposition home or self-care (01) ==
LOC: HO.HMGCX 09:48
PROVIDERS: PCP Internal Medicine; Visit Provider Internal Medicine Rheumatology
DX: M47.817 Spondylosis without myelopathy or radiculopathy, lumbosacral region (principal)
CPT/HCPCS: 72110

== ENCOUNTER → 2024-04-27 09:55 | Outpatient (BNV) | payer MEDICARE, SELFPAY | PROVIDERS: PCP Internal Medicine; Visit Provider Radiology Diagnostic Radiology | DX: M47.817 Spondylosis without myelopathy or radiculopathy, lumbosacral region (principal) | CPT/HCPCS: 72110 ==

== ENCOUNTER 2024-09-01 11:31 | Outpatient (AMB) | payer MEDICARE, SELFPAY ==
[2024-09-01 11:39] VITALS: BP 126/78; PULSE 72; TEMP 37; O2SAT 97; BMI 31.6
--- NOTE | 2024-09-01 11:39 | AM.OFFVISMDC ---
Intake Vital Signs 09/01/24 11:39 Height 5 ft Weight 162 lb BMI 31.6 BP 126/78 Blood Pressure Location Lt brachial Position Sitting Pulse 72 Pulse Source Pulse Oximeter Temp 98.6 F Temp Source Oral Pulse Oximetry (%) 97 Oxygen Delivery Method Room Air Intake Visit Reasons: G0439 Allergies penicillin V Allergy (Unknown, Verified 09/01/24 11:52) rash and swelling hydrochlorothiazide Adverse Reaction (Intermediate, Verified 09/01/24 11:52) hyponatremia rosuvastatin [From Crestor] Adverse Reaction (Intermediate, Verified 09/01/24 11:52) Muscle Pain lisinopril Adverse Reaction (Unknown, Verified 09/01/24 11:52) cough Medication List - Last Reconciled 09/01/24 by Ana Laura Lora MD calcium carbonate-vitamin D3 1,000 mg-20 mcg (800 unit) tabs PO carbamide peroxide 6.5% (Debrox) 5 drps otic (ears) DAILY 4 days clobetasol 0.05% 1 appl topical BID diclofenac sodium 1% (Voltaren) 2 grams topical QID PRN levothyroxine 25 mcg PO DAILY metoprolol tartrate 50 mg PO DAILY olmesartan 40 mg PO DAILY rosuvastatin 5 mg PO DAILY Shower Chair As directed triamcinolone acetonide 0.1% 1 appl topical BID walker with wheels HPI G0439 HPI Details Initiated the conversation about Advanced Directives. Advanced Directives help? patients prepare for current and future decisions about their medical treatment? and place of care. Discussed with patient that it is a process where a patients? current condition and prognosis are reviewed, their wishes for information? regarding their illness are elicited, and likely medical dilemmas are presented? and options discussed. The form can be amended as needed, reviewed yearly and? make changes as needed IPPE/AWV ? year old presents? for her ? Annual? Wellness Visit, initial visit.? Medical / Social History Reviewed? Past Medical History ?Yes? . ? [place]? of Care / Care Team list updated ?Yes . ? Surgical/Hospitalization? History ?Yes . ? Current Medications? (including OTC and supplements) ?Yes . ? Family History ?Yes? . ? Tobacco? Control form ?Yes . ? AUDIT-C (Alcohol use) form? ?Yes . ? Illicit drug use in Social? History ?Yes . ? Current diagnosis of? depression? ?No ? Appropriate PHQ2/PHQ9? completed ?Yes . ? Data entered by ?Medical? Nurse Practitioner Home Assessments and reviewed by provider ? Fall Risk ? Fall? History? Have you had any falls with? injury in the past year? ?No . ? Have you had two or more? falls in the past year? ?No . ? Fall Risk Assessment: ?No? falls in the past year . ? HRA filled out by? the patient, reviewed by Provider and scanned. ? IPPE/AWV ? Balance? Romberg? ?Yes . ? Tandem? walk ?Yes . ? Walk and? Turn ?Yes . ? Rise from? sit to stand ?Yes . ?Vision? Corrective? lens ?Yes ? Vision? screen ? Up-to-date, has an appointment [] for vision? screening and glaucoma screening ?Hearing? Whisper? test ?pass .? Initiated the conversation about Advanced Directives. Advanced Directives help? patients prepare for current and future decisions about their medical treatment? and place of care. Discussed with patient that it is a process where a patients? current condition and prognosis are reviewed, their wishes for information? regarding their illness are elicited, and likely medical dilemmas are presented? and options discussed. The form can be amended as needed, reviewed yearly and? make changes as needed Written? Plan?Completed. See Patient? Documents. [facility] Medical History (Updated 09/01/24 @ 12:37 by Ana Laura Lora MD) Annual physical exam Right knee pain Lumbar spine pain Hypothyroidism Chronic kidney disease, stage 3 Tremor Right-sided carotid artery disease Osteoporosis Hyperlipidemia HTN (hypertension) Surgical History H/O colonoscopy No pertinent past surgical history Family History Father No problems noted. Mother No problems noted. Social History Housing: House Alcohol intake: never Patient Tobacco Use Status: Never used Tobacco e-Cigarette/Vaping Use: Never Used service: No Current occupational status: retired Cognitive needs: No Hearing needs: No Vision needs: Yes Questionnaire Medicare Wellness Checkup What is your age?: 80 or older What gender do you identify with?: female During the past 4 weeks, how much have you been bothered by emotional problems such as feeling anxious, depressed, irritable, sad or downhearted, and blue?: not at all During the past 4 weeks, has your physical & emotional health limited your social activities with family, friends, neighbors, or groups?: not at all During the past 4 weeks, how much bodily pain have you generally had?: moderate pain During the past 4 weeks, was someone available to help you if you needed & wanted help?: yes, as much as I wanted During the past 4 weeks, what was the hardest physical activity you could do for at least 2 minutes?: light Can you get to places out of walking distance without help? (For eg., can you travel alone on buses, taxis or drive your car?): No Can you go shopping for groceries or clothes without someone's help?: No Can you prepare your own meals?: Yes Can you do your housework without help?: Yes Because of any health problems, do you need the help of another person with your personal care needs such as eating, bathing, dressing or getting around the house?: No Can you handle your own money without help?: Yes During the past 4 weeks, how would you rate your health in general?: good During the past 4 weeks how have things been going for you?: good & bad parts about equal Are you having difficulties driving your car?: not applicable, I don't use a car Do you always fasten your seat belt when you are in a car?: yes, usually During past 4 weeks, have you been bothered by the following: never: Falling or dizzy when standing up, Sexual problems?, Trouble eating well?, Teeth or denture problems? and Problems using the telephone? and seldom: Tiredness or fatigue? Have you fallen 2 or more times in the past year?: Yes Are you afraid of falling?: No Are you a smoker?: no During the past 4 weeks, how many drinks of wine, beer, or other alcoholic beverages did you have?: no alcohol at all Do you exercise for about 20 minutes 3 or more times a week?: no, I usually do not exercise this much Have you been given information to help with the following?: no: Hazards in your house that might hurt you? and no: Keeping track of your medications? How often do you have trouble taking medicines the way you have been told to take them?: I always take medicine as prescribed How confident are you that you can control & manage most of your health problems?: very confident What is your race?: White Mini Mental State Exam (MMSE) Orientation What is the (year) (season) (date) (day) (month)?: year, season, date, day and month Where are we (state) (county) (town or city) (hospital) (floor)?: state, county, town or city, hospital/clinic and floor Registration Name of 3 unrelated objects clearly and slowly, then ask patient to repeat all 3 of them. (1st repeat determines score. Make sure they can repeat all three): object 1, object 2 and object 3 Attention & Calculation (CHOOSE ONE) Spell WORLD backwards (DLROW): 5 letters Recall Ask patient to repeat the 3 items from question #3.: object 1, object 2 and object 3 Language Show patient a wristwatch & ask what it is. Repeat for pencil.: watch and pencil Ask the patient to repeat the phrase 'No ifs, ands, or buts' after you.: correct Ask the patient to 'take a piece of paper with their right hand' 'fold paper in half' 'place paper on floor': take paper in right hand, fold paper in half and place paper on floor Print the sentence 'CLOSE YOUR EYES' on a piece. If patient actually closes eyes then score.: followed written direction Give patient a blank piece of paper & ask to write a sentence. Score if it contains a noun & verb.: sentence contains subject and verb Score Score: 29 PHQ-9 Over the last 2 weeks, how often have you been bothered by any of the following problems? 1. Little interest or pleasure in doing things: not at all 2. Feeling down, depressed, or hopeless: not at all 3. Trouble falling or staying asleep, or sleeping too much: not at all 4. Feeling tired or having little energy: not at all 5. Poor appetite or overeating: not at all 6. Feeling bad about yourself - or that you are a failure or have let yourself or your family down: not at all 7. Trouble concentrating on things, such as reading the newspaper or watching television: not at all 8. Moving or speaking so slowly that other people could have noticed. Or the opposite - being so fidgety or restless that you have been moving around a lot more than usual: not at all 9. Thoughts that you would be better off or of hurting yourself in some way: not at all Total score: 0 Depression Screening Interpretation: Negative Depression Screening Done: Yes 19888 - PHQ-9 Billing: Yes Source: Developed by Drs. Uriel Burch, Nica B.W. Wood Bocanegra and colleagues, with an educational simone from [employer]. Review of Systems Const All systems reviewed & are unremarkable except as noted in HPI and below Eyes Reports no additional complaints ENT Reports no additional complaints Card Reports no additional complaints Resp Reports no additional complaints GI Reports no additional complaints Reports no additional complaints Physical Exam Vital Signs: Last Vital Signs Temp 98.6 F 09/01/24 11:39 Pulse 72 09/01/24 11:39 BP 126/78 09/01/24 11:39 Pulse Ox 97 09/01/24 11:39 Oxygen Delivery Method Room Air 09/01/24 11:39 BMI result Body Mass Index 31.6 Const General: no acute distress HEENT Head: Yes normal to inspection Ears: hearing grossly normal bilaterally Eyes General: appearance normal, both eyes and all related structures Neck Neck: Yes no lymphadenopathy and Yes supple Resp Effort & Inspection: normal respiratory effort Auscultation: clear to auscultation bilaterally Cardio Rhythm: regular rhythm Heart sounds: S1 normal heart sound present and S2 normal heart sound present GI Inspection: Yes normal to inspection Palpation (GI): Soft to palpation Percussion: Yes normal to percussion Auscultation: normal bowel sounds Extrem General: Yes no clubbing, cyanosis or edema Assessment & Plan Assessment & Plan (1) Chronic kidney disease, stage 3: Code(s): N18.30 - Chronic kidney disease, stage 3 unspecified Plan: Monitor renal function, avoid nephrotoxins (2) HTN (hypertension): Code(s): I10 - Essential (primary) hypertension Plan: Continue current medications (3) Hyperlipidemia: Code(s): E78.5 - Hyperlipidemia, unspecified Plan: Continue statin, return in 6 months with a fasting labs before Orders: Orders Complete Blood Count Auto Diff 6 Months E78.5 - Hyperlipidemia, unspecified, I10 - Essential (primary) hypertension, N18.30 - Chronic kidney disease, stage 3 unspecified Lipid Panel 6 Months E78.5 - Hyperlipidemia, unspecified, I10 - Essential (primary) hypertension, N18.30 - Chronic kidney disease, stage 3 unspecified Comprehensive [place]. Panel Fast 6 Months E78.5 - Hyperlipidemia, unspecified, I10 - Essential (primary) hypertension, N18.30 - Chronic kidney disease, stage 3 unspecified TSH reflex Free T4 6 Months E78.5 - Hyperlipidemia, unspecified, I10 - Essential (primary) hypertension, N18.30 - Chronic kidney disease, stage 3 unspecified Medications: New celecoxib (Celebrex) 200 mg PO DAILY 30 caps 1RF Quality Reporting (2019) Depression/Bipolar (159/160/161/177) PHQ-9: Total score: 0 Coding Level of Care Code Medicare Subsequent (G0439) Diagnoses Chronic kidney disease, stage 3 N18.30 HTN (hypertension) I10 Hyperlipidemia E78.5 CPT Codes Advance Care Planning - Advance Care Planning discussion: On file, no changes ([id number]) Advance Care Planning - Time spent: 1-15 minutes, on File ([id number]) Additional Codes PHQ-9 - 07572 - PHQ-9 Billing: Yes ([id number]) Advance Care Planning Advance Care Planning discussion: On file, no changes Forms completed: Health Care Proxy Time spent: 1-15 minutes, on File Did not discuss due to Cultural/Spiritual beliefs: Yes
== END 2024-09-01 12:45 | disposition home or self-care (01) ==
PROVIDERS: PCP Internal Medicine; Visit Provider Internal Medicine
DX: Z00.00 Encounter for general adult medical examination without abnormal findings (principal); I12.9 Hypertensive chronic kidney disease with stage 1 through stage 4 chronic kidney disease, or unspecified chronic kidney disease; N18.30 Chronic kidney disease, stage 3 unspecified; E78.5 Hyperlipidemia, unspecified

== ENCOUNTER → 2024-09-01 11:31 | Outpatient (BNVA) | payer MEDICARE, SELFPAY | PROVIDERS: PCP Internal Medicine; Visit Provider Internal Medicine | DX: I12.9 Hypertensive chronic kidney disease with stage 1 through stage 4 chronic kidney disease, or unspecified chronic kidney disease (principal); N18.30 Chronic kidney disease, stage 3 unspecified; E78.5 Hyperlipidemia, unspecified | CPT/HCPCS: 96127 ==

== ENCOUNTER 2025-02-15 07:20 | Outpatient (REF) | payer MEDICARE, SELFPAY ==
--- OUTSIDE RECORDS SUMMARY | 2025-02-15 07:22 | XMS_ITS | Clinical Summary ---
Author Organization [facility] Facility Address [address] [place] [id number] Care Team Providers Care Bar Machine Operator Multiple Spindle Name Role Phone Ana Laura Lora MD Primary Care Provider [phone] Social History Tobacco Use Types Packs/Day Years Used Date Smoking Tobacco: Never Assessed Comments Unknown Sex and Gender Information Value Date Recorded Sex Assigned at Not on file Legal Sex Female 3:12 PM EDT Gender Identity Not on file Sexual Orientation Not on file Plan of Treatment Health Maintenance Due Date Last Done Comments Pneumococcal Vaccine: 50+ Ye ars (2 of 2 - PCV) 05/15/2014 05/15/2013 Influenza Vaccine (#1) 2025 Hepatitis B Vaccine Aged Out No longe r eligible based on patient's age to complete this topic Insurance Medicare [facility] Care Teams Bar Machine Operator Multiple Spindle Relationship Specialty Start Date End Date Ana Laura Lora MD [address] [place] [address] PCP - General Internal Medicine 05/24/23
[2025-02-15 10:42] LABS: MANUAL DIFF FLAG NO
[2025-02-15 10:55] LABS: Hematocrit 38.8 % (37.0-47.0); Hemoglobin 12.6 g/dl (12.0-16.0); Imm Gran Abs Auto 0.01 X10*3/uL (0.00-0.03); Imm Gran Pct Auto 0.2 % (0.0-0.4); Lymphocytes Absolute Auto 2.2 X10*3/uL (1.2-4.9); Mean Corpuscular HGB Conc 32.5 g/dl (31.0-35.0); Mean Corpuscular Hemoglobin 29.2 pg (27.0-33.0); Mean Corpuscular Volume 89.8 fL (80.0-98.0); NRBC Abs Auto 0.000 X10*3/uL (0.0-0.012); NRBC Pct Auto 0.0 /100WBC (0.0-0.2); Platelet Count 210 X10*3/uL (160-400); Red Blood Count 4.32 X10*6/uL (4.20-5.50); White Blood Count 6.5 X10*3/uL (4.8-10.8)
[2025-02-15 11:23] LABS: Alanine Aminotransferase 23 U/L (0-31); Albumin Level 4.3 g/dL (3.5-5.0); Alkaline Phosphatase 89 U/L (39-117); Anion Gap 11 (12-20); Aspartate Amino Transferase 40 U/L (5-31); Blood Urea Nitrogen 19 mg/dL (9-16); Calcium 9.4 mg/dL (8.4-10.2); Carbon Dioxide 27 mmol/L (22-29); Chloride 105 mmol/L (96-108); Cholesterol 175 mg/dL (<200); Estimated Glomerular Filt Rate 58; HDL Cholesterol 72 mg/dL (>40); Potassium 4.1 mmol/L (3.3-5.1); Sodium 139 mmol/L (135-145); Total Protein 7.5 g/dL (6.5-8.0); Triglycerides 141 mg/dL (<150)
[2025-02-15 12:02] LABS: Free T4 (Free Thyroxine) 1.04 ng/dL (0.71-1.85)
== END 2025-02-15 07:21 | disposition home or self-care (01) ==
LOC: HO.HMGCLDS 07:20
PROVIDERS: PCP Internal Medicine; Visit Provider Internal Medicine
DX: N18.30 Chronic kidney disease, stage 3 unspecified (principal); I10 Essential (primary) hypertension; E78.5 Hyperlipidemia, unspecified
CPT/HCPCS: 36415; 80053; 80061; 84439; 84443; 85025

== ENCOUNTER 2025-02-21 09:11 | Outpatient (AMB) | payer MEDICARE, SELFPAY ==
[2025-02-21 09:21] VITALS: BP 126/78; PULSE 74; RESP 20; TEMP 37.1; O2SAT 97; BMI 30.9
--- NOTE | 2025-02-21 09:21 | MHC.PC.OV ---
Vital Signs 02/21/25 09:21 Height 5 ft Weight 158 lb BMI 30.9 BP 126/78 Blood Pressure Location Lt brachial Position Sitting Respiration 20 Pulse 74 Pulse Source Pulse Oximeter Temp 98.8 F Temp Source Oral Pulse Oximetry (%) 97 Oxygen Delivery Method Room Air Intake Visit Reasons: Follow up on labs Intake Note: Pt is here today for a follow up visit on labs. Allergies penicillin V Allergy (Unknown, Verified 02/21/25 09:24) rash and swelling hydrochlorothiazide Adverse Reaction (Intermediate, Verified 02/21/25 09:24) hyponatremia rosuvastatin (From Crestor) Adverse Reaction (Intermediate, Verified 02/21/25 09:24) Muscle Pain lisinopril Adverse Reaction (Unknown, Verified 02/21/25 09:24) cough Medication List - Last Reconciled 02/21/25 by Ana Laura Lora MD calcium carbonate-vitamin D3 1,000 mg-20 mcg (800 unit) tabs PO carbamide peroxide 6.5% (Debrox) 5 drps otic (ears) DAILY 4 days celecoxib (Celebrex) 200 mg PO DAILY clobetasol 0.05% 1 appl topical BID diclofenac sodium 1% (Voltaren) 2 grams topical QID PRN levothyroxine 25 mcg PO DAILY metoprolol tartrate 50 mg PO DAILY olmesartan 40 mg PO DAILY rosuvastatin 5 mg PO DAILY Shower Chair As directed triamcinolone acetonide 0.1% 1 appl topical BID walker with wheels Tobacco use date assessed: 02/21/25 Fall risk assessment: No Falls in past year Last assessed Fall Risk: 02/21/25 Dental Screening Dental Screen Date: 02/21/25 Did you have a dental visit in the last 12 months?: No Did you have a dental problem in the last 6 months where you did not have access to dental care?: No Was dental information given to patient?: Patient declined HPI Follow up on labs HPI Details Pt presents for f/u HTN, hypothroid, hyperlipid, stable on meds. [facility] Medical History Annual physical exam Right knee pain Lumbar spine pain Hypothyroidism Chronic kidney disease, stage 3 Tremor Right-sided carotid artery disease Osteoporosis Hyperlipidemia HTN (hypertension) Surgical History H/O colonoscopy No pertinent past surgical history Family History Father No problems noted. Mother No problems noted. Social History Housing: House Alcohol intake: never Patient Tobacco Use Status: Never used Tobacco e-Cigarette/Vaping Use: Never Used service: No Current occupational status: retired Cognitive needs: No Hearing needs: No Vision needs: Yes Questionnaire PHQ-9 Over the last 2 weeks, how often have you been bothered by any of the following problems? 1. Little interest or pleasure in doing things: not at all 2. Feeling down, depressed, or hopeless: not at all 3. Trouble falling or staying asleep, or sleeping too much: not at all 4. Feeling tired or having little energy: not at all 5. Poor appetite or overeating: not at all 6. Feeling bad about yourself - or that you are a failure or have let yourself or your family down: not at all 7. Trouble concentrating on things, such as reading the newspaper or watching television: not at all 8. Moving or speaking so slowly that other people could have noticed. Or the opposite - being so fidgety or restless that you have been moving around a lot more than usual: not at all 9. Thoughts that you would be better off or of hurting yourself in some way: not at all Total score: 0 Depression Screening Interpretation: Negative Depression Screening Done: Yes 52077 - PHQ-9 Billing: Yes Source: Developed by Drs. Uriel Burch, Nica Bocanegra, Wood Amezquita and colleagues, with an educational simone from [employer]. Thrive Questionnaire Date Thrive assessed: 02/21/25 I am a: Patient What is your living situation today?: I have a steady place to live Within the past 12 months, did the food you bought not last and you didn't have the money to get more?: Never true Within the past 12 months, did you worry whether your food would run out before you got money to buy more?: Never true Do you have trouble paying for medicines?: No Do you have trouble getting transportation to medical appointments?: No Do you have trouble paying your heating and electricity bill?: No Do you have trouble taking care of your child, family member or friend?: No Do you have trouble with day-to-day activities such as bathing, preparing meals, shopping, managing finances, etc.?: No Are you currently unemployed and looking for a job?: No Are you interested in more education?: No Please select the resources that you would like help with: None THRIVE Score: 0 AUDIT C Alcohol Use Questionnaire (AUDIT-C) 1. How often do you have a drink containing alcohol?: Never 3. How often do you have six or more drinks on one occasion?: Never Total Score: 0 MARY ALICE-7 AMB Questionnaire MARY ALICE-7 Date MARY ALICE - 7 assessed: 02/21/25 Feeling nervous, anxious, or on edge: 0 = Not at all Not being able to stop or control worryin = Not at all Worrying too much about different things: 0 = Not at all Trouble relaxin = Not at all Being so restless that it is hard to sit still: 0 = Not at all Becoming easily annoyed or irritable: 0 = Not at all Feeling afraid as if something awful might happen: 0 = Not at all Total MARY ALICE-7 score (0-4 normal; 5-9 mild; 10-14 moderate; 15-21 severe): 0 Source: Developed by Drs. Uriel Burch, Nica Bocanegra, Wood Amezquita and colleagues, with an educational simone from [employer]. MARY ALICE-7 Assessment Billing MARY ALICE-7 Assessment Tool: MARY ALICE-7 Assessment 56429 Review of Systems Const All systems reviewed & are unremarkable except as noted in HPI and below Eyes Reports no additional complaints ENT Reports no additional complaints Card Reports no additional complaints Resp Reports no additional complaints GI Reports no additional complaints Reports no additional complaints Physical exam (Primary Care) Vital Signs: Last Vital Signs Temp 98.8 F 02/21/25 09:21 Pulse 74 02/21/25 09:21 Resp 20 02/21/25 09:21 BP 126/78 02/21/25 09:21 Pulse Ox 97 02/21/25 09:21 Oxygen Delivery Method Room Air 02/21/25 09:21 BMI result Body Mass Index 30.9 Tobacco/Smoking Status: Tobacco use Status Tobacco use date assessed 02/21/25 02/21/25 09:24 Patient Tobacco Use Status Never used Tobacco 02/21/25 09:24 e-Cigarette/Vaping Use Never Used 02/21/25 09:24 PHQ-9: PHQ-9 Score PHQ-9: Total score 0 02/21/25 09:49 Depression Screening Interpretation: Negative Thrive Assessment: Date of Thrive Assessment Date Thrive assessed 02/21/25 02/21/25 09:30 Const General: no acute distress HENMT Other: Scaly erythematous skin lesion on the right temporal region Head: Yes normal to inspection Ears: hearing grossly normal bilaterally Throat: Yes posterior oropharynx normal Eyes General: appearance normal, both eyes and all related structures Neck Neck: Yes no lymphadenopathy and Yes supple Resp Effort & Inspection: normal respiratory effort Auscultation: clear to auscultation bilaterally Cardio Rhythm: regular rhythm Heart sounds: S1 normal heart sound present and S2 normal heart sound present GI Inspection: Yes normal to inspection Palpation (GI): Soft to palpation Percussion: Yes normal to percussion Auscultation: normal bowel sounds Immunizations pneumoc 20-gordo conj-dip cr(PF) 0.5 mL IM syringe Performing Provider: Ana Laura Lora MD Performing Location: [facility] [place] [facility] Administered by: ZAHIRA Maria on 02/21/25 09:59 Dose Route Admin Location Dispensed Lot Number Expiration Date [facility] [place] 0.5 mL IM Left Deltoid 0.5 mL [id number] 02/05/26 2836-6421-89 [employer]ER Total Dispensed Waste 0.5 mL 0 % VIS Given Date VIS Provided VIS Publication Date 02/21/25 Single Vaccine 25 Eligibility Eligibility Date Funding Source Not [facility] Eligible 02/21/25 Private Coding Level of Care Code Est Pt Level 4 (73636) Complex EM visit Add On G2211 Diagnoses Dysplastic nevi D23.9 Hyperlipidemia E78.5 HTN (hypertension) I10 Hypothyroidism E03.9 Chronic kidney disease, stage 3 N18.30 Additional Codes MARY ALICE-7 Assessment Billing - MARY ALICE-7 Assessment Tool: MARY ALICE-7 Assessment 62961 ([id number]) PHQ-9 - 80009 - PHQ-9 Billing: Yes ([id number]) Assessment & Plan Assessment & Plan (1) Dysplastic nevi: Comment: on face Code(s): D23.9 - Other benign neoplasm of skin, unspecified Category: Medical Plan: Referred to dermatology (2) Hyperlipidemia: Code(s): E78.5 - Hyperlipidemia, unspecified Category: Medical Plan: Continue statin (3) HTN (hypertension): Code(s): I10 - Essential (primary) hypertension Category: Medical Plan: Continue current medications (4) Hypothyroidism: Code(s): E03.9 - Hypothyroidism, unspecified Category: Medical Plan: Continue levothyroxine (5) Chronic kidney disease, stage 3: Code(s): N18.30 - Chronic kidney disease, stage 3 unspecified Category: Medical Plan: Avoid nephrotoxins monitor renal function follow-up in 6 months Orders: Orders Pneumococcal 20 Immunization Today Z23 - Encounter for immunization Comprehensive [place]. Panel Fast 6 Months E03.9 - Hypothyroidism, unspecified, E55.9 - Vitamin D deficiency, unspecified, E78.5 - Hyperlipidemia, unspecified, I10 - Essential (primary) hypertension, N18.30 - Chronic kidney disease, stage 3 unspecified Vitamin D 25-OH Total 6 Months E03.9 - Hypothyroidism, unspecified, E55.9 - Vitamin D deficiency, unspecified, E78.5 - Hyperlipidemia, unspecified, I10 - Essential (primary) hypertension, N18.30 - Chronic kidney disease, stage 3 unspecified TSH reflex Free T4 6 Months E03.9 - Hypothyroidism, unspecified, E55.9 - Vitamin D deficiency, unspecified, E78.5 - Hyperlipidemia, unspecified, I10 - Essential (primary) hypertension, N18.30 - Chronic kidney disease, stage 3 unspecified Complete Blood Count Auto Diff 6 Months E03.9 - Hypothyroidism, unspecified, E55.9 - Vitamin D deficiency, unspecified, E78.5 - Hyperlipidemia, unspecified, I10 - Essential (primary) hypertension, N18.30 - Chronic kidney disease, stage 3 unspecified Referrals Dermatology Referral D23.9 - Other benign neoplasm of skin, unspecified
--- OUTSIDE RECORDS SUMMARY | 2025-02-21 09:28 | XMS_ITS | Clinical Summary ---
Author Organization [facility] Facility Address [address] [place] [id number] Care Team Providers Care Manager Case Management Name Role Phone Ana Laura Lora MD Primary Care Provider [phone] Social History Tobacco Use Types Packs/Day Years [...] age to complete this topic Insurance Medicare [facility] Care Teams Manager Case Management Relationship Specialty Start Date End Date Ana Laura Lora MD [address] [place] [address] PCP - General Internal Medicine 05/24/23
== END 2025-02-21 10:08 | disposition home or self-care (01) ==
LOC: HO.HMCC 09:11
PROVIDERS: PCP Internal Medicine; Visit Provider Internal Medicine
DX: D23.9 Other benign neoplasm of skin, unspecified (principal); E78.5 Hyperlipidemia, unspecified; I10 Essential (primary) hypertension; E03.9 Hypothyroidism, unspecified; N18.30 Chronic kidney disease, stage 3 unspecified; Z23 Encounter for immunization

== ENCOUNTER → 2025-02-21 09:11 | Outpatient (BNVA) | payer MEDICARE, SELFPAY | PROVIDERS: PCP Internal Medicine; Visit Provider Internal Medicine | DX: Z23 Encounter for immunization (principal); D23.9 Other benign neoplasm of skin, unspecified; E78.5 Hyperlipidemia, unspecified; E03.9 Hypothyroidism, unspecified; I12.9 Hypertensive chronic kidney disease with stage 1 through stage 4 chronic kidney disease, or unspecified chronic kidney disease; N18.30 Chronic kidney disease, stage 3 unspecified | CPT/HCPCS: 90471; 90677; 96127; 99212 ==

== ENCOUNTER 2025-05-21 13:46 | Outpatient (AMB) | payer MEDICARE, SELFPAY ==
--- OUTSIDE RECORDS SUMMARY | 2025-05-21 13:52 | XMS_ITS | Clinical Summary ---
Author Organization [facility] Facility Address [address] [place] [id number] Care Team Providers Care Deck Hand Name Role Phone Ana Laura Lora MD Primary Care Provider [phone] Social History Tobacco Use Types Packs/Day Years [...] age to complete this topic Insurance Medicare [facility] Care Teams Deck Hand Relationship Specialty Start Date End Date Ana Laura Lora MD 1959 [place] [id number] PCP - General Internal Medicine 05/24/23
[2025-05-21 14:04] VITALS: BP 126/76; PULSE 70; RESP 19; TEMP 37.1; O2SAT 97; BMI 30.7
--- NOTE | 2025-05-21 14:04 | MHC.PC.OV ---
Vital Signs 05/21/25 14:04 Height 5 ft Weight 157 lb BMI 30.7 BP 126/76 Blood Pressure Location Lt brachial Position Sitting Respiration 19 Pulse 70 Pulse Source Pulse Oximeter Temp 98.7 F Temp Source Oral Pulse Oximetry (%) 97 Oxygen Delivery Method Room Air Intake Visit Reasons: Spot on face Intake Note: Pt is here today for a sick visit. Pt c/o spot on her face L side of her face. Allergies penicillin V Allergy (Unknown, Verified 02/21/25 09:24) rash and swelling hydrochlorothiazide Adverse Reaction (Intermediate, Verified 02/21/25 09:24) hyponatremia rosuvastatin (From Crestor) Adverse Reaction (Intermediate, Verified 02/21/25 09:24) Muscle Pain lisinopril Adverse Reaction (Unknown, Verified 02/21/25 09:24) cough Medication List - Last Reconciled 05/21/25 by Ana Laura Lora MD calcium carbonate-vitamin D3 1,000 mg-20 mcg (800 unit) tabs PO carbamide peroxide 6.5% (Debrox) 5 drps otic (ears) DAILY 4 days celecoxib (Celebrex) 200 mg PO DAILY clobetasol 0.05% 1 appl topical BID diclofenac sodium 1% (Voltaren) 2 grams topical QID PRN levothyroxine 25 mcg PO DAILY metoprolol tartrate 50 mg PO DAILY olmesartan 40 mg PO DAILY rosuvastatin 5 mg PO DAILY Shower Chair As directed triamcinolone acetonide 0.1% 1 appl topical BID walker with wheels Tobacco use date assessed: 02/21/25 Dental Screening Dental Screen Date: 02/21/25 HPI Spot on face HPI Details Patient complains of a spot on her face that she noticed 2 weeks ago which resolved by now. She is established with a inspector assembly and had an appointment in February for full body skin check. Hypertension hyperlipidemia and hypothyroidism are stable on current medications. Patient complains of chronic lower back pain and stiffness. X-ray done in June showed advanced degenerative changes and old L1 compression fracture. [facility] Medical History Osteoporosis Annual physical exam Right knee pain Lumbar spine pain Hypothyroidism Chronic kidney disease, stage 3 Tremor Right-sided carotid artery disease Hyperlipidemia HTN (hypertension) Surgical History H/O colonoscopy No pertinent past surgical history Family History Father No problems noted. Mother No problems noted. Social History Housing: House Alcohol intake: never Patient Tobacco Use Status: Never used Tobacco e-Cigarette/Vaping Use: Never Used service: No Current occupational status: retired Cognitive needs: No Hearing needs: No Vision needs: Yes Questionnaire PHQ-9 Over the last 2 weeks, how often have you been bothered by any of the following problems? 1. Little interest or pleasure in doing things: not at all 2. Feeling down, depressed, or hopeless: not at all 3. Trouble falling or staying asleep, or sleeping too much: not at all 4. Feeling tired or having little energy: not at all 5. Poor appetite or overeating: not at all 6. Feeling bad about yourself - or that you are a failure or have let yourself or your family down: not at all 7. Trouble concentrating on things, such as reading the newspaper or watching television: not at all 8. Moving or speaking so slowly that other people could have noticed. Or the opposite - being so fidgety or restless that you have been moving around a lot more than usual: not at all 9. Thoughts that you would be better off or of hurting yourself in some way: not at all Total score: 0 Depression Screening Interpretation: Negative Depression Screening Done: Yes 27221 - PHQ-9 Billing: Yes Source: Developed by Drs. Uriel Burch, Nica Bocanegra, Wood Amezquita and colleagues, with an educational simone from [employer]. Thrive Questionnaire Date Thrive assessed: 02/21/25 I am a: Patient What is your living situation today?: I choose not to answer this question Within the past 12 months, did the food you bought not last and you didn't have the money to get more?: I choose not to answer this question Within the past 12 months, did you worry whether your food would run out before you got money to buy more?: I choose not to answer this question Do you have trouble paying for medicines?: I choose not to answer this question Do you have trouble getting transportation to medical appointments?: I choose not to answer this question Do you have trouble paying your heating and electricity bill?: I choose not to answer this question Do you have trouble taking care of your child, family member or friend?: I choose not to answer this question Do you have trouble with day-to-day activities such as bathing, preparing meals, shopping, managing finances, etc.?: I choose not to answer this question Are you currently unemployed and looking for a job?: I choose not to answer this question Are you interested in more education?: I choose not to answer this question Please select the resources that you would like help with: None Currently or been in a relationship where the following occur: I choose not to answer THRIVE Score: 0 AUDIT C Alcohol Use Questionnaire (AUDIT-C) 1. How often do you have a drink containing alcohol?: Never 3. How often do you have six or more drinks on one occasion?: Never Total Score: 0 MARY ALICE-7 AMB Questionnaire MARY ALICE-7 Date MARY ALICE - 7 assessed: 02/21/25 Feeling nervous, anxious, or on edge: 0 = Not at all Not being able to stop or control worryin = Not at all Worrying too much about different things: 0 = Not at all Trouble relaxin = Not at all Being so restless that it is hard to sit still: 0 = Not at all Becoming easily annoyed or irritable: 0 = Not at all Feeling afraid as if something awful might happen: 0 = Not at all Total MARY ALICE-7 score (0-4 normal; 5-9 mild; 10-14 moderate; 15-21 severe): 0 Source: Developed by Drs. Uriel Burch, Nica Bocanegra, Wood Amezquita and colleagues, with an educational simone from [employer]. Review of Systems Const All systems reviewed & are unremarkable except as noted in HPI and below Eyes Reports no additional complaints Card Reports no additional complaints Resp Reports no additional complaints GI Reports no additional complaints Reports no additional complaints Physical exam (Primary Care) Vital Signs: Last Vital Signs Temp 98.7 F 05/21/25 14:04 Pulse 70 05/21/25 14:04 Resp 19 05/21/25 14:04 BP 126/76 05/21/25 14:04 Pulse Ox 97 05/21/25 14:04 Oxygen Delivery Method Room Air 05/21/25 14:04 BMI result Body Mass Index 30.7 Tobacco/Smoking Status: Tobacco use Status Tobacco use date assessed 02/21/25 05/21/25 14:04 Patient Tobacco Use Status Never used Tobacco 05/21/25 14:04 e-Cigarette/Vaping Use Never Used 05/21/25 14:04 PHQ-9: PHQ-9 Score PHQ-9: Total score 0 05/21/25 14:04 Depression Screening Interpretation: Negative Thrive Assessment: Date of Thrive Assessment Date Thrive assessed 02/21/25 05/21/25 14:04 Currently or been in a relationship where the following occur: I choose not to answer Const General: no acute distress HENMT Head: Yes normal to inspection Resp Effort & Inspection: normal respiratory effort Auscultation: clear to auscultation bilaterally Cardio Rhythm: regular rhythm Heart sounds: S1 normal heart sound present and S2 normal heart sound present GI Inspection: Yes normal to inspection Palpation (GI): Soft to palpation Percussion: Yes normal to percussion Skin Other: No lesions noted on the face General skin exam: no rashes or lesions noted Coding Level of Care Code Est Pt Level 4 (12488) Diagnoses Osteoporosis M81.0 HTN (hypertension) I10 Hyperlipidemia E78.5 Additional Codes PHQ-9 - 74826 - PHQ-9 Billing: Yes ([id number]) Assessment & Plan Assessment & Plan (1) Osteoporosis: Comment: DEXA 2015 Reciast Infusion since 2014, DEXA 09/2017 Improved SD score -2.5, L spine XR advanced spondylosis, L1 old compression fracture Code(s): M81.0 - Age-related osteoporosis without current pathological fracture Category: Medical Plan: Obtain DEXA, continue vitamin-D calcium supplement. Starting Prolia injection will be discussed once results available. patient is reluctant to take injections. (2) HTN (hypertension): Code(s): I10 - Essential (primary) hypertension Category: Medical Plan: Continue medications (3) Hyperlipidemia: Code(s): E78.5 - Hyperlipidemia, unspecified Category: Medical Plan: Continue statin Orders: Orders XR DEXA axial skeleton Today M81.0 - Age-related osteoporosis without current pathological fracture
== END 2025-05-21 15:02 | disposition home or self-care (01) ==
LOC: HO.HMCC 13:47
PROVIDERS: PCP Internal Medicine; Visit Provider Internal Medicine
DX: M81.0 Age-related osteoporosis without current pathological fracture (principal); I10 Essential (primary) hypertension; E78.5 Hyperlipidemia, unspecified

== ENCOUNTER → 2025-05-21 13:46 | Outpatient (BNVA) | payer MEDICARE, SELFPAY | PROVIDERS: PCP Internal Medicine; Visit Provider Internal Medicine | DX: M81.0 Age-related osteoporosis without current pathological fracture (principal); I10 Essential (primary) hypertension; E78.5 Hyperlipidemia, unspecified; E03.9 Hypothyroidism, unspecified | CPT/HCPCS: 96127; 99212 ==